=== PATIENT | female | born 1995 | race Caucasian/White ===

== ENCOUNTER 2023-03-08 07:41 | Emergency (ER) | payer OTHER, SELFPAY ==
--- NOTE | ~2023-03-08 | CT_ITS ---
EXAMINATION: CT abdomen pelvis w con INDICATION: Vomiting and abdominal pain TECHNIQUE: Computed tomographic images of the abdomen and pelvis were obtained after the administrati on of 100 cc of Omnipaque 350 intravenous contrast. The dose-length product (DLP) was 198.98 mGy-cm. Automated exposure control and iterative reconstruction technique were employed. COMPARISON: None available FINDINGS: The lung bases are clear. The heart size is normal. The liver, spleen, pancreas, gallbladde r, and adrenal glands are normal. The kidneys are unremarkable. No pathologically enlarged abdominal or pelvic lymph nodes are identified. There is no free intraperitoneal gas or evidence of bowel obstr uction. The appendix is normal. There is a 5.0 cm left adnexal cyst. IMPRESSION: 1. No CT correlate for the patient's symptoms. Reviewed, dictated and finalized at location L.
[2023-03-08 07:43] VITALS: BP 116/74; PULSE 107; RESP 22; TEMP 36.5; O2SAT 99
[2023-03-08 08:03] LABS: Basophils Percent Auto 0.2 % (0.2-1.2); Eosinophils Absolute Auto 0.1 K/mm3 (0-0.3); Eosinophils Percent Auto 1.2 % (0-4.4); Hemoglobin 14.2 g/dL (12.0-15.0); Immature Granulocyte Absolute 0.02 K/mm3 (0.00-0.031); Immature Granulocyte Percent A 0.2 % (0-0.5); Lymphocytes Absolute Auto 0.88 K/mm3 (0.9-3.2); Lymphocytes Percent Auto 9.3 % (18.3-44.2); Mean Corpuscular HGB Conc 33.8 g/dl (32-36); Mean Corpuscular Hemoglobin 31.6 pg (26-34); Mean Corpuscular Volume 93.5 fl (80-100); Mean Platelet Volume 9.8 fl (7.4-10.4); Monocytes Absolute Auto 0.4 K/mm3 (0.1-0.6); Monocytes Percent Auto 3.7 % (2.6-8.5); Neutrophils Absolute Auto 8.1 K/mm3 (1.3-6.7); Neutrophils Percent Auto 85.4 % (45.5-73.1); Platelet Count Result 217 k/mm3 (150-375); Red Blood Count 4.49 M/mm3 (4.2-5.4); Red Cell Distribution Width 13.3 % (11.5-14.5); White Blood Count 9.5 K/mm3 (4.5-10.0)
[2023-03-08 08:13] LABS: Alanine Aminotransferase 23 U/L (6-35); Albumin Level 4.5 g/dL (3.5-5.1); Alkaline Phosphatase 70 U/L (38-126); Anion Gap 8 mmol/L (8-16); Appearance Urine Cloudy (Clear); Aspartate Amino Transferase 23 U/L (14-36); Bacteria Urine 2+ /hpf; Bilirubin Urine Negative (Negative); Bilirubin,Total 0.9 mg/dL (0.2-1.3); Blood Urea Nitrogen 16 mg/dL (7-17); Blood Urine Negative (Negative); Calcium 8.5 mg/dL (8.4-10.2); Carbon Dioxide 22 mmol/L (22-30); Chloride 106 mmol/L (98-107); Color Urine Yellow (Yellow); Estimated CRCL calculation 84 ml/min; Estimated Glomerular Filt Rate > 60; Glucose 114 mg/dL (65-110); Glucose Urine UA Negative (Negative); Ketones Urine Trace mg/dL (Negative); Leukocyte Esterase Ur 2+ LEU/UL (Negative); Lipase 49 U/L (23-300); Mucus Urine Present /lpf; Nitrate Urine Negative (Negative); Potassium 4.1 mmol/L (3.4-5.0); Protein Urine Negative (Negative); RBC Urine 0-2 /hpf (0-2); Sodium 136 mmol/L (137-145); Specific Grav Ur 1.024 (1.001-1.035); Squamous Epithelial Cell Urine Many /hpf (Few); WBC Urine 21-50 /hpf; pH Urine 5.5 (5.0-9.0)
[2023-03-08 08:14] LABS: Add Urine Microscopic? YES
--- NOTE | 2023-03-08 08:36 | PC.NURSE ---
Pt states she has been having an anxiety attack for 24 hours. Pt states she has a hx of anxiety attacks but never to this level. States the anxiety has caused her lower abd pain, nausea, and emesis. Pt states that she feels like she cannot keep any fluids down.
[2023-03-08] MEDS: SODIUM CHLORIDE 0.9% IV 1,000 ML 999 ML IV CONT (09:14)
[2023-03-08] MEDS: LORazepam INJ (*CRX) 2 MG/ML VIAL 0.5 MG IV PUSH (09:14)
[2023-03-08] MEDS: ONDANSETRON INJ 4 MG/2 ML VIAL IV PUSH (09:16)
--- NOTE | 2023-03-08 09:16 | ED.ANXIETY ---
HPI - Anxiety General Chief Complaint: Anxiety Stated Complaint: panic attack Time Seen by Provider: 03/08/23 08:56 History of Present Illness HPI narrative: Patient is a 28-year-old female with a history of anxiety and panic attacks here due to anxiety, nausea, vomiting abdominal pain x1 day. Patient states yesterday she started to feel anxious which caused her to vomit several times. Since then she has been unable to tolerate any p.o., states that she attempted her prescribed Ativan last night but was unable to keep it down. She developed a diffuse abdominal pain overnight and has had numerous episodes of nonbloody diarrhea. Denies history of previous symptoms with panic attacks. She had no fevers, chills, sick contacts. Last thing that she ate was steak last evening, nobody else got sick. No suicidal or homicidal ideation. Related Data Allergies Allergy/AdvReac Type Severity Reaction Status Date / Time latex Allergy Rash Verified 03/08/23 09:11 Review of Systems Review of Systems: Gen.: Denies fevers or chills Eyes: Denies eye pain or visual change ENT: Denies congestion Respiratory: Denies shortness of breath or cough CV: Denies chest pain or palpitations GI: Reports abdominal pain, nausea, vomiting and diarrhea denies burning, urgency, frequency or hematuria Musculoskeletal: Denies back pain or muscle pain Neuro: Denies numbness, tingling, weakness or focal weakness Skin: Denies rash Psych: Reports anxiety Except as documented, all other systems reviewed and negative PMFSH Social History Social History Substance use type: marijuana Exam Narrative: APPEARANCE: Well appearing, no pain in distress, well-nourished. Head: Normocephalic and atraumatic. EYES: PERRLA/EOMI, conjunctivae clear NOSE: No nasal drainage EARS: External ear normal in appearance THROAT: Oropharynx is clear. Mucous membranes are moist. NECK: Supple. No adenopathy, no masses. RESPIRATORY: Airway patent, respirations nonlabored. Clear to auscultation bilaterally, no rales, rhonchi, wheezing. CARDIOVASCULAR: Regular rate and rhythm without murmurs, rubs, or gallops. ABDOMINAL: Normoactive bowel sounds. Soft, nontender, nondistended. No rebound tenderness or guarding. MUSCULOSKELETAL: Extremities are warm and well-perfused. Moves all extremities well. No edema. NEURO: Normal speech. No focal neurologic deficits. SKIN: Skin is warm and dry. No rashes. PSYCHIATRIC: anxious appearing. Course Vital Signs Vital signs: Vital Signs Temperature 97.7 F 03/08/23 07:43 Pulse Rate 107 H 03/08/23 07:43 Respiratory Rate 22 H 03/08/23 07:43 Blood Pressure 116/74 03/08/23 07:43 Pulse Oximetry 99 03/08/23 07:43 Oxygen Delivery Room Air 03/08/23 07:43 Temperature 97.7 F 03/08/23 07:43 Pulse Rate 107 H 03/08/23 07:43 Respiratory Rate 22 H 03/08/23 07:43 Blood Pressure 116/74 03/08/23 07:43 Pulse Oximetry 99 03/08/23 07:43 Oxygen Delivery Room Air 03/08/23 07:43 MDM - Anxiety MDM Narrative Medical decision making narrative: 28-year-old female here for evaluation of anxiety, nausea vomiting over the past day. She is anxious appearing but nontoxic, has slight tenderness to palpation in her epigastric region. Basic labs are unremarkable. UA does appear infected. CT scan of her abdomen is normal. Patient feeling improved after anxiolytics, fluids, antiemetics and Pepcid. Tolerating p.o. Symptoms likely due to anxiety or gastritis. Will send home with meds for UTI and Zofran as needed. We discussed return precautions and she voiced understanding. Lab Data 03/08/23 07:55 03/08/23 07:55 Labs: Lab Results 03/08/23 Range/Units 07:55 WBC 9.5 (4.5-10.0) K/mm3 RBC 4.49 (4.2-5.4) M/mm3 Hgb 14.2 (12.0-15.0) g/dL Hct 42.0 (37.0-47.0) % MCV 93.5 (80-100) fl MCH 31.6 (26-34) pg MCHC 33.8 (32-36) g/dl RDW 13.3 (11.5-14.5) % Plt Count 217
[2023-03-08] MEDS: FAMOTIDINE 20 MG/2 ML VIAL IV PUSH (09:17)
--- NOTE | 2023-03-08 11:20 | PC.NURSE ---
Report received from Lara DIEZ at this time
== END 2023-03-08 11:38 | disposition home or self-care (01) ==
PROVIDERS: Emergency Medicine; Emergency Provider Physician Assistant
DX: F41.9 Anxiety disorder, unspecified (principal); K29.70 Gastritis, unspecified, without bleeding; N39.0 Urinary tract infection, site not specified
CPT/HCPCS: 36415; 74177; 80053; 81001; 81025; 83690; 85025; 87086; 87088; 96361; 96374; 96375; 99284; J2060; J2405; J7030; Q9967